=== PATIENT | female | born 1975 | race Caucasian/White ===

== ENCOUNTER 2020-02-19 05:12 | Observation (INO) | payer OTHER, SELFPAY ==
[~2020-02-19] VITALS: Ht 162.6 cm; Wt 85.3 kg
[2020-02-19] MEDS ORDERED: PROPOFOL 200 MG/20 ML VIAL IV ONE (07:20)
[2020-02-19] MEDS ORDERED: ETOMIDATE 20 MG/10 ML VIAL IVP ONE (07:20)
[2020-02-19] MEDS ORDERED: NEOSTIGMINE 1:1000 10 MG/10 ML VIAL ONE (07:20)
[2020-02-19] MEDS ORDERED: SEVOFLURANE 250 ML BTL INH ONE (07:20)
[2020-02-19] MEDS ORDERED: METOCLOPRAMIDE 10 MG/2 ML INJ VIAL ONE (07:20)
[2020-02-19] MEDS ORDERED: fentaNYL citrate 0.05 MG/ML VIAL ONE (07:20)
[2020-02-19] MEDS ORDERED: ONDANSETRON 4 MG/2 ML VIAL ONE (07:20)
[2020-02-19] MEDS ORDERED: SUCCINYLCHOLINE CHLORIDE 200 MG/10 ML VIAL IVP ONE (07:20)
[2020-02-19] MEDS ORDERED: ROCURONIUM 50 MG/5 ML VIAL IV ONE (07:20)
[2020-02-19] MEDS ORDERED: MORPHINE PRES FREE 10 MG/10 ML AMP IV ONE (07:21)
[2020-02-19] MEDS ORDERED: BUPIVACAINE-MPF 0.25% 30 ML VIAL INJ ONE (07:28)
[2020-02-19] MEDS ORDERED: LIDOCAINE 1% 500 MG/50 ML VIAL ONE (07:28)
[2020-02-19] MEDS ORDERED: LACTATED RINGERS 1,000 ML IV SCH (08:43)
[2020-02-19] MEDS ORDERED: MEPERIDINE 25 MG/ML SYR IVP PRN ×2 (08:45→09:00)
[2020-02-19] MEDS ORDERED: HYDROmorphone 1 MG/ML AMP IVP PRN ×2 (08:45→09:00)
[2020-02-19] MEDS ORDERED: diphenhydrAMINE 50 MG/ML VIAL IVP PRN ×4 (08:45→09:00)
[2020-02-19] MEDS ORDERED: ONDANSETRON 4 MG/2 ML VIAL IVP PRN ×4 (08:45→09:00)
[2020-02-19] MEDS ORDERED: NALOXONE 0.4 MG/ML VIAL IVP PRN ×6 (08:50→09:00)
[2020-02-19] MEDS ORDERED: NALBUPHINE 10 MG/ML AMP IVP PRN ×2 (08:50→09:00)
[2020-02-19] MEDS ORDERED: GLYCOPYRROLATE 0.2 MG/ML VIAL IV ONE ×2 (11:05→11:15)
[2020-02-19] MEDS ORDERED: GLYCOPYRROLATE 0.2 MG/ML VIAL ONE (11:10)
--- NOTE | 2020-02-19 11:30 | NUR ---
Pt admitted to room 111A via hospital bed, s/p laparoscopic hysterectomy & bilateral salpingectomy. Report received from PACU nurse. Pt [id number], medical hx obtained from pt. 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 [place] cath in place & draining clear light diogo urine. Pt oriented to room and unit. Left hand IV 20G intact with ongoing LR @ 120ml/h.
[2020-02-19 12:00] VITALS: BP 141/84
[2020-02-19] MEDS: DEXT 5% / NACL 0.45% 1,000 ML IV SCH ×3 (12:00→23:44)
[2020-02-19] MEDS: LACTATED RINGERS 1,000 ML IV SCH ×2 (12:00→17:20)
[2020-02-19] MEDS ORDERED: KETOROLAC 30 MG/ML VIAL IM/IVP SCH ×2 (12:00)
[2020-02-19] MEDS: KETOROLAC 30 MG/ML VIAL IVP SCH ×3 (12:29→23:45)
--- NOTE | 2020-02-19 14:45 | NUR ---
Family dropped off celphone and charge at front lobby and staff handed to patient. Pt denies any pain or discomfort at this time. Abd dressings dry and intact. [place] intact & draining well.
[2020-02-19 16:00] VITALS: BP 104/58
[2020-02-19] MEDS ORDERED: diphenhydrAMINE 50 MG CAP PO PRN (18:55)
[2020-02-20] MEDS: LACTATED RINGERS 1,000 ML IV SCH (00:42)
[2020-02-20 00:58] VITALS: BP 89/56
[2020-02-20] MEDS: KETOROLAC 30 MG/ML VIAL IVP SCH ×2 (06:02→11:13)
[2020-02-20] MEDS: DEXT 5% / NACL 0.45% 1,000 ML IV SCH (06:03)
--- NOTE | 2020-02-20 07:35 | NUR ---
RECEIVED REPORT FROM PM RNТАТЬЯНА. PT CAME FROM HOME. C/O: DYSAREURIA AND BLEEDING DURING INTERCOURSE. DX: LAP HYSTERECTOMY, BL SALPINGECTOMY. HX: , CHOLECYSCETOMY, C SECTION. NKA FULL CODE. IV: LT HAND 20G NS 120. PT IS AMBULATORY. PT IS ON RA. PT HAS ABDOMINAL DRESSING. PLAN: DC TO HOME.
--- NOTE | 2020-02-20 07:46 | NUR ---
PATIENT HAS BEEN SCREENED AND CATEGORIZED LOW NUTRITION RISK. PATIENT WILL BE SEEN WITHIN 7 DAYS OF ADMISSION. 02/26/[address]
[2020-02-20 08:00] VITALS: BP 101/61
--- NOTE | 2020-02-20 09:00 | NUR ---
NO MEDICATIONS TO PASS AT THIS TIME. PT IS RESTING IN BED
--- NOTE | 2020-02-20 10:00 | NUR ---
RECEIVED DC ORDERS. PT NOTIFIED
--- NOTE | 2020-02-20 11:30 | NUR ---
GAVE PAIN MED TO PT. PT TOLERATED WELL
[2020-02-20 12:39] VITALS: BP 101/61
--- NOTE | 2020-02-20 13:15 | NUR ---
WENT OVER DC PAPER WORK. PREFORMED A DRESSING CHANGE. NO SIGNS OF INFECTION: NO REDNESS, MINIMAL DRAINAGE. NO ODOR, NO SWELLING. ESCORTED PT TO LOBBY.
--- NOTE | 2020-02-20 13:20 | NUR ---
NOTIFIED POLE LIFT OPERATOR ON PT DISCHARGE. NOTIFIED CLINICAL ADVISOR.
== END 2020-02-20 13:15 | disposition home or self-care (01) ==
LOC: MFCC 05:12 → MDS 05:12 → UNDOADMIN 05:12 → EDSTATUS 09:30 → MDS 12:06 → MTU 12:06
PROVIDERS: ADMIT Obstetrics & Gynecology; ATTEND Obstetrics & Gynecology
DX: D25.9 Leiomyoma of uterus, unspecified (principal); Z20.828 Contact with and (suspected) exposure to other viral communicable diseases; D64.9 Anemia, unspecified; N92.0 Excessive and frequent menstruation with regular cycle; N88.8 Other specified noninflammatory disorders of cervix uteri; N94.10 Unspecified dyspareunia; Z90.49 Acquired absence of other specified parts of digestive tract
CPT/HCPCS: 36415; 58571; 86886; 86900; 86901; 87081; 88307; 96361; 96374; 96375; 96376; G0378; J0330; J1200; J1885; J2001; J2270; J2405; J2704; J2710; J2765; J3010; J3490; J7120; U0003